=== PATIENT | male | born 1970 | race Caucasian/White ===

== ENCOUNTER 2020-04-28 07:33 | Emergency (ER) | payer MEDICAID ==
[~2020-04-28] VITALS: Ht 167.6 cm; Wt 84.8 kg
--- NOTE | 2020-04-28 07:45 | NUR ---
[id number] work c/o facial pain, nose abrasion noted. utd w/ tetanus shot. Patient a/ox4, breathing even and unlabored, no sob noted.
--- NOTE | 2020-04-28 08:02 | NUR ---
Wound cleansed and dressed. Waiting for lapd for report.
[2020-04-28 08:23] VITALS: BP 145/96
--- NOTE | 2020-04-28 08:23 | NUR ---
INTERVIEWED BY [employer] [id number]. Patient discharged to home in stable condition. Written and verbal after care instructions given. Patient verbalizes understanding of instruction.
== END 2020-04-28 08:24 | disposition home or self-care (01) ==
LOC: ER 07:35
DX: S01.21XA Laceration without foreign body of nose, initial encounter (principal); Y08.89XA Assault by other specified means, initial encounter; Y93.89 Activity, other specified; Y92.89 Other specified places as the place of occurrence of the external cause; Y99.8 Other external cause status